=== PATIENT | female | born 1955 | race Caucasian/White ===

== ENCOUNTER 2017-04-18 12:31 | Inpatient (IN) | payer MEDICARE, MEDICAID ==
[~2017-04-18] VITALS: Ht 167.6 cm; Wt 72.0 kg
[2017-04-18] MEDS ORDERED: PERCOCET1 TA4 PO (13:43)
[2017-04-18] MEDS ORDERED: VALIUM5 MG PO (13:43)
[2017-04-18] MEDS ORDERED: ZOFRAN ODT4 MG PO (13:44)
[2017-04-18] MEDS ORDERED: TRAZODONE50 MG PO (13:45)
[2017-04-18] MEDS ORDERED: LEVOTHYROXIN50 MCG PO (13:45)
[2017-04-18 13:58] LABS: URINE BILIRUBIN - DIPSTICK NEGATIVE (NEGATIVE); URINE BLOOD DIPSTICK NEGATIVE (NEGATIVE); URINE CLARITY CLEAR; URINE COLOR YELLOW; URINE GLUCOSE - DIPSTICK NEGATIVE (NEGATIVE); URINE KETONE NEGATIVE (NEGATIVE); URINE LEUK ESTERASE NEGATIVE (NEGATIVE); URINE NITRITE - DIPSTICK NEGATIVE (Negative); URINE PH 5.5 (4.5-8.0); URINE PROTEIN - DIPSTICK NEGATIVE (NEG-TRACE); URINE SPECIFIC GRAVITY >=1.030; URINE UROBILINOGEN - DIPSTICK 0.2 E.U./dL (0.2)
[2017-04-18 13:59] LABS: HEMATOCRIT 39.4 % (37.0-47.0); HEMOGLOBIN 12.6 g/dl (12.0-16.0); IMMATURE GRANULOCYTES 0.2 % (0.0-1.0); MEAN CELL VOLUME 90.8 fL CALC (80.0-100.0); NEUT# 2.11 thou/uL (2.00-7.15); RED BLOOD COUNT 4.34 mill/uL (4.20-5.60); RED CELL DISTRI WIDTH 13.5 % (11.5-15.5)
[2017-04-18 14:14] LABS: PROTHROMBIN TIME 10.5 SECONDS (9.0-12.5)
[2017-04-18 14:15] LABS: ALKALINE PHOSPHATASE 83 u/l (38-126); ANION GAP 13 (6-22 (CALC)); BILIRUBIN, TOTAL 0.4 mg/dL (0.0-1.4); BUN 16 mg/dL (8-23); BUN/CREATININE RATIO 20 (12-20 (CALC)); CALCIUM 9.2 mg/dL (8.4-10.2); CARBON DIOXIDE 29 mmol/l (22-30); CHLORIDE 102 mmol/l (95-108); CREATININE 0.8 mg/dL (0.5-1.0); GFR > 60 ML/MIN (>=60 (CALC)); GFR FOR AFR.AMER. > 60 ML/MIN (>=60 (CALC)); GLUCOSE 109 mg/dL (82-115); POTASSIUM 3.9 mmol/l (3.5-5.1); SGOT/AST 19 u/l (9-36); SGPT/ALT 32 u/l (11-66); SODIUM 140 mmol/l (137-146); TOTAL PROTEIN 6.7 g/dL (6.3-8.2)
[2017-04-18 14:27] LABS: MYOGLOBIN 31 ng/mL (0 - 62)
[2017-04-18 18:50] VITALS: BP 137/76
[2017-04-18 22:00] LABS: BARBITURATES NEGATIVE (NEGATIVE); COCAINE NEGATIVE (NEGATIVE); METHADONE NEGATIVE (NEGATIVE); OXCYCODONE POSITIVE (NEGATIVE); TETRAHYDROCANNABIONOL NEGATIVE (NEGATIVE); TRICYLIC ANTIDEPRESSANTS NEGATIVE (NEGATIVE)
[2017-04-18 23:12] VITALS: BP 103/61
[2017-04-19 03:15] VITALS: BP 128/75
[2017-04-19 07:52] VITALS: BP 126/84
[2017-04-19] MEDS ORDERED: VENTOLIN HF1 IN (11:09)
[2017-04-19] MEDS ORDERED: TEMAZEPAM30 MG PO (11:10)
[2017-04-19 11:35] VITALS: BP 131/51
[2017-04-19 16:18] VITALS: BP 136/71
[2017-04-19 21:39] VITALS: BP 122/69
[2017-04-19 23:00] VITALS: BP 132/71
[2017-04-20 04:25] VITALS: BP 131/77
[2017-04-20 05:55] LABS: HEMATOCRIT 37.4 % (37.0-47.0); HEMOGLOBIN 12.2 g/dl (12.0-16.0); MEAN CORPUSCULAR HGB CONC 32.6 g/L CALC (32.0-36.0); NEUT# 1.67 thou/uL (2.00-7.15); RED BLOOD COUNT 4.2 mill/uL (4.20-5.60); RED CELL DISTRI WIDTH 13.4 % (11.5-15.5)
[2017-04-20 06:18] LABS: ANION GAP 12 (6-22 (CALC)); BUN 9 mg/dL (8-23); BUN/CREATININE RATIO 12 (12-20 (CALC)); CARBON DIOXIDE 27 mmol/l (22-30); CHLORIDE 107 mmol/l (95-108); CREATININE 0.7 mg/dL (0.5-1.0); GFR > 60 ML/MIN (>=60 (CALC)); GFR FOR AFR.AMER. > 60 ML/MIN (>=60 (CALC)); GLUCOSE 96 mg/dL (82-115); MAGNESIUM 1.9 mg/dL (1.6-2.3); POTASSIUM 3.3 mmol/l (3.5-5.1); SODIUM 142 mmol/l (137-146)
[2017-04-20 09:05] VITALS: BP 132/68
[2017-04-20 11:39] VITALS: BP 138/68
[2017-04-20 16:29] VITALS: BP 121/70
[2017-04-20 19:30] VITALS: BP 92/36
[2017-04-20 23:30] VITALS: BP 138/74
[2017-04-21 04:00] VITALS: BP 144/73
[2017-04-21 06:00] LABS: HEMATOCRIT 38.7 % (37.0-47.0); HEMOGLOBIN 12.5 g/dl (12.0-16.0); MEAN CELL VOLUME 88.4 fL CALC (80.0-100.0); MEAN CORPUSCULAR HGB 28.5 pG CALC (26.0-32.0); MEAN CORPUSCULAR HGB CONC 32.3 g/L CALC (32.0-36.0); NEUT# 1.86 thou/uL (2.00-7.15); RED BLOOD COUNT 4.38 mill/uL (4.20-5.60); RED CELL DISTRI WIDTH 13.2 % (11.5-15.5)
[2017-04-21 06:16] LABS: ANION GAP 11 (6-22 (CALC)); BUN 13 mg/dL (8-23); BUN/CREATININE RATIO 20 (12-20 (CALC)); CALCIUM 9.4 mg/dL (8.4-10.2); CARBON DIOXIDE 31 mmol/l (22-30); CHLORIDE 105 mmol/l (95-108); CREATININE 0.7 mg/dL (0.5-1.0); GFR > 60 ML/MIN (>=60 (CALC)); GFR FOR AFR.AMER. > 60 ML/MIN (>=60 (CALC)); GLUCOSE 82 mg/dL (82-115); POTASSIUM 3.9 mmol/l (3.5-5.1); SODIUM 143 mmol/l (137-146)
[2017-04-21 07:47] VITALS: BP 134/68
[2017-04-21 16:15] VITALS: BP 111/66
[2017-04-21 20:25] VITALS: BP 106/65
[2017-04-22 00:30] VITALS: BP 126/51
[2017-04-22 04:35] VITALS: BP 134/80
[2017-04-22 05:27] LABS: HEMATOCRIT 37.4 % (37.0-47.0); HEMOGLOBIN 12.4 g/dl (12.0-16.0); MEAN CELL VOLUME 88.4 fL CALC (80.0-100.0); MEAN CORPUSCULAR HGB 29.3 pG CALC (26.0-32.0); MEAN CORPUSCULAR HGB CONC 33.2 g/L CALC (32.0-36.0); NEUT# 2.04 thou/uL (2.00-7.15); RED BLOOD COUNT 4.23 mill/uL (4.20-5.60); RED CELL DISTRI WIDTH 13.2 % (11.5-15.5)
[2017-04-22 05:37] LABS: ANION GAP 13 (6-22 (CALC)); BUN 16 mg/dL (8-23); BUN/CREATININE RATIO 22 (12-20 (CALC)); CALCIUM 9.6 mg/dL (8.4-10.2); CARBON DIOXIDE 31 mmol/l (22-30); CHLORIDE 103 mmol/l (95-108); CREATININE 0.7 mg/dL (0.5-1.0); GFR > 60 ML/MIN (>=60 (CALC)); GFR FOR AFR.AMER. > 60 ML/MIN (>=60 (CALC)); GLUCOSE 84 mg/dL (82-115); MAGNESIUM 2.1 mg/dL (1.6-2.3); POTASSIUM 3.8 mmol/l (3.5-5.1); SODIUM 144 mmol/l (137-146)
[2017-04-22 08:43] VITALS: BP 112/69
[2017-04-22 12:21] VITALS: BP 130/66
[2017-04-22] MEDS ORDERED: LIPITOR40 M1 PO (13:48)
[2017-04-22] MEDS ORDERED: PROTONIX40 M2 PO (13:48)
[2017-04-22] MEDS ORDERED: ASPIRIN ADULT L81 M2 PO (13:48)
[2017-04-27] MEDS ORDERED: PERCOCET1 TA4 PO (13:22)
[2017-04-27] MEDS ORDERED: VALIUM5 MG PO (13:22)
[2017-04-27] MEDS ORDERED: TEMAZEPAM30 MG PO (13:22)
== END 2017-04-22 14:30 | DRG 65 ==
LOC: ED 12:31 → ED-I 14:57 → ED 16:26 → MS2 16:27
PROVIDERS: Emergency Medicine; Nurse Practitioner Family; ADMIT Internal Medicine; ATTEND Internal Medicine
DX: I63.9 Cerebral infarction, unspecified (principal); G81.91 Hemiplegia, unspecified affecting right dominant side; J44.9 Chronic obstructive pulmonary disease, unspecified; M96.1 Postlaminectomy syndrome, not elsewhere classified; K21.9 Gastro-esophageal reflux disease without esophagitis; F17.210 Nicotine dependence, cigarettes, uncomplicated; R47.1 Dysarthria and anarthria; R29.810 Facial weakness; R27.0 Ataxia, unspecified; H53.8 Other visual disturbances; R29.710 NIHSS score 10; G89.4 Chronic pain syndrome; Z96.89 Presence of other specified functional implants
CPT/HCPCS: G0378; S0164

== ENCOUNTER 2017-04-30 11:17 | Emergency (ER) | payer MEDICARE, MEDICAID ==
[~2017-04-30] VITALS: Ht 167.6 cm; Wt 70.0 kg
[~2017-04-30 11:17] MED LIST: ASPIRIN ADULT L81 M2 PO; LEVOTHYROXIN50 MCG PO; LIPITOR40 M1 PO; PERCOCET1 TA4 PO; PROTONIX40 M2 PO; TEMAZEPAM30 MG PO; TRAZODONE50 MG PO; VALIUM5 MG PO; VENTOLIN HF1 IN; ZOFRAN ODT4 MG PO
[2017-04-30 12:14] LABS: HEMATOCRIT 40.6 % (37.0-47.0); HEMOGLOBIN 13.2 g/dl (12.0-16.0); IMMATURE GRANULOCYTES 0.2 % (0.0-1.0); MEAN CELL VOLUME 89.8 fL CALC (80.0-100.0); MEAN CORPUSCULAR HGB 29.2 pG CALC (26.0-32.0); MEAN CORPUSCULAR HGB CONC 32.5 g/L CALC (32.0-36.0); NEUT# 2.46 thou/uL (2.00-7.15); RED BLOOD COUNT 4.52 mill/uL (4.20-5.60); RED CELL DISTRI WIDTH 13.1 % (11.5-15.5)
[2017-04-30 12:24] LABS: ALBUMIN 4.1 g/dL (3.2-5.0); ALKALINE PHOSPHATASE 78 u/l (38-126); ANION GAP 14 (6-22 (CALC)); BILIRUBIN, TOTAL 0.6 mg/dL (0.0-1.4); BUN 15 mg/dL (8-23); BUN/CREATININE RATIO 20 (12-20 (CALC)); CALCIUM 9.8 mg/dL (8.4-10.2); CARBON DIOXIDE 33 mmol/l (22-30); CHLORIDE 101 mmol/l (95-108); CREATININE 0.8 mg/dL (0.5-1.0); GFR > 60 ML/MIN (>=60 (CALC)); GFR FOR AFR.AMER. > 60 ML/MIN (>=60 (CALC)); GLUCOSE 91 mg/dL (82-115); POTASSIUM 4.1 mmol/l (3.5-5.1); SGOT/AST 20 u/l (9-36); SGPT/ALT 24 u/l (11-66); SODIUM 144 mmol/l (137-146); TOTAL PROTEIN 6.9 g/dL (6.3-8.2)
[2017-04-30 13:35] VITALS: BP 102/60
== END 2017-04-30 13:35 ==
LOC: ED 11:17
PROVIDERS: Emergency Medicine
DX: R11.0 Nausea (principal); R53.1 Weakness; F17.210 Nicotine dependence, cigarettes, uncomplicated; Z86.73 Personal history of transient ischemic attack (TIA), and cerebral infarction without residual deficits; J44.9 Chronic obstructive pulmonary disease, unspecified

== ENCOUNTER 2017-05-27 12:13 | Observation (INO) | payer MEDICARE, MEDICAID ==
[~2017-05-27] VITALS: Ht 167.6 cm; Wt 69.4 kg
--- NOTE | 2017-05-27 12:15 | NUR ---
PT ARRIVES, IMMEDIATELY TO ROOM 9 VIA WC.
[2017-05-27 12:46] LABS: HEMATOCRIT 41.9 % (37.0-47.0); HEMOGLOBIN 13.6 g/dl (12.0-16.0); IMMATURE GRANULOCYTES 0.2 % (0.0-1.0); MEAN CELL VOLUME 88.4 fL CALC (80.0-100.0); MEAN CORPUSCULAR HGB 28.7 pG CALC (26.0-32.0); MEAN CORPUSCULAR HGB CONC 32.5 g/L CALC (32.0-36.0); NEUT# 2.96 thou/uL (2.00-7.15); RED BLOOD COUNT 4.74 mill/uL (4.20-5.60); RED CELL DISTRI WIDTH 13.2 % (11.5-15.5)
[2017-05-27 13:00] LABS: ALBUMIN 4.5 g/dL (3.2-5.0); ALKALINE PHOSPHATASE 78 u/l (38-126); ANION GAP 13 (6-22 (CALC)); BILIRUBIN, TOTAL 0.8 mg/dL (0.0-1.4); BUN 9 mg/dL (8-23); BUN/CREATININE RATIO 12 (12-20 (CALC)); CALCIUM 9.9 mg/dL (8.4-10.2); CARBON DIOXIDE 28 mmol/l (22-30); CHLORIDE 105 mmol/l (95-108); CREATININE 0.8 mg/dL (0.5-1.0); GFR > 60 ML/MIN (>=60 (CALC)); GFR FOR AFR.AMER. > 60 ML/MIN (>=60 (CALC)); GLUCOSE 95 mg/dL (82-115); POTASSIUM 3.8 mmol/l (3.5-5.1); SGOT/AST 26 u/l (9-36); SGPT/ALT 26 u/l (11-66); SODIUM 142 mmol/l (137-146); TOTAL PROTEIN 7.3 g/dL (6.3-8.2)
[2017-05-27 13:12] LABS: MYOGLOBIN 29 ng/mL (0 - 62)
--- NOTE | 2017-05-27 13:58 | NUR ---
SBAR PRINTED TO FLOOR
[2017-05-27] MEDS ORDERED: BREO ELLIPTA1 INH IN (14:19)
--- NOTE | 2017-05-27 14:19 | NUR ---
PT DID CONFIRM NAMES OF MEDICATIONS FOR MEDICATION RECONCILIATION BUT COULD NOT CONFIRM DOSAGES
--- NOTE | 2017-05-27 14:33 | NUR ---
REPORT PROVIDED TO GRETA DAVIDSON
[2017-05-27 14:40] VITALS: BP 115/61
--- NOTE | 2017-05-27 14:40 | NUR ---
PT ARRIVED TO FLOOR VIA STRETCHER WITH ER NURSE MADIE REINA. PT ORIENTED TO ROOM AND CALL LIGHT SYSTEM. NO SIGNS OF DISTRESS. PT HAS NO COMPLAINTS AT THIS TIME. SAFETY PRECAUTIONS ARE IN PLACE. CALL LIGHT WITHIN REACH. HOURLY ROUNDS WILL BE MADE.
--- NOTE | 2017-05-27 14:53 | NUR ---
PT TO MEDSURG IN STABLE CONDITION VIA STRETCHER IN STABLE CONDITION.
[2017-05-27 16:45] VITALS: BP 115/62
[2017-05-27 19:15] VITALS: BP 98/60
--- NOTE | 2017-05-27 19:15 | NUR ---
PT RESTING IN BED WATCHING TV. PT IS ALERT AND ORIENTED X3. PERRLA. RESP ARE EVEN AND UNLABORED. NO DISTRESS NOTED. LUNGS ARE CLEAR. TELE IN PLACE. HR REGULAR. PULSES PALPABLE THROUGHOUT. NO EDEMA NOTED. BS ACTIVE. PT REPORTS A NORMAL BM 05/27. #20 RAC. NO REDNESS OR EDEMA NOTED. PT DENIES PAIN AT THIS TIME. WILL CONTINUE TO MONITOR.
[2017-05-28 00:15] VITALS: BP 119/63
--- NOTE | 2017-05-28 00:31 | NUR ---
PT RESTING IN BED WITH EYES CLOSED. AROUSED TO VERBAL STIMULI. RESP ARE EVEN AND UNLABORED. TELE IN PLACE. NO CHANGE IN STATUS WILL CONTINUE TO MONITOR.
--- NOTE | 2017-05-28 04:00 | NUR ---
PT RESTING IN BED WITH EYES CLOSED. AROUSED TO VERBAL STIMULI. RESP ARE EVEN AND UNLABORED. PT DENIES PAIN AT THIS TIME. TELE IN PLACE. NO CHANGE IN STATUS. WILL CONTINUE TO MONITOR.
[2017-05-28 04:44] VITALS: BP 109/55
[2017-05-28 05:55] LABS: HEMOGLOBIN 12.7 g/dl (12.0-16.0); IMMATURE GRANULOCYTES 0.2 % (0.0-1.0); MEAN CELL VOLUME 88.4 fL CALC (80.0-100.0); MEAN CORPUSCULAR HGB 28.8 pG CALC (26.0-32.0); MEAN CORPUSCULAR HGB CONC 32.6 g/L CALC (32.0-36.0); NEUT# 1.84 thou/uL (2.00-7.15); RED BLOOD COUNT 4.41 mill/uL (4.20-5.60)
[2017-05-28 06:15] LABS: ANION GAP 13 (6-22 (CALC)); BUN 12 mg/dL (8-23); BUN/CREATININE RATIO 17 (12-20 (CALC)); CALCIUM 9.6 mg/dL (8.4-10.2); CARBON DIOXIDE 26 mmol/l (22-30); CHLORIDE 108 mmol/l (95-108); CREATININE 0.7 mg/dL (0.5-1.0); GFR > 60 ML/MIN (>=60 (CALC)); GFR FOR AFR.AMER. > 60 ML/MIN (>=60 (CALC)); GLUCOSE 84 mg/dL (82-115); POTASSIUM 3.8 mmol/l (3.5-5.1); SODIUM 143 mmol/l (137-146)
--- NOTE | 2017-05-28 07:00 | NUR ---
REPORT RECIEVED FROM MADIE SHEARER. PT AWAKE ON ENTRY. RESTING IN SUPINE POSITION. PT HAS NO COMPLAINTS OF PAIN AT THIS TIME. SAFETY PRECAUTIONS REINFORCED. CALL LIGHT WITHIN REACH. WILL CONTINUE TO MAKE HOURLY ROUNDS.
[2017-05-28 08:08] VITALS: BP 111/66
[2017-05-28] MEDS ORDERED: ZOFRAN ODT4 MG PO (11:34)
[2017-05-28] MEDS ORDERED: PROTONIX40 M2 PO (11:34)
--- NOTE | 2017-05-28 12:00 | NUR ---
PT IS RESTING IN BED. NO SIGNS OF DISTRESS. NO COMPLAINTS OF PAIN FROM PT AT THIS TIME. TELE IN PLACE. SAFTEY PRECAUTIONS IN PLACE. CALL LIGHT WITH IN REACH. WILL CONTINUE TO MONITOR HOURLY.
[2017-05-28 13:31] LABS: CHOLESTEROL HDL RATIO 3.3 (<4.4 (CALC))
[2017-05-28 13:40] VITALS: BP 93/64
--- NOTE | 2017-05-28 14:50 | NUR ---
Discharge instructions given. Patient verbalizes understanding of same. Discharged in stable condition via Wheelchair to Home with staff. All belongings sent with pt.
== END 2017-05-28 15:00 ==
LOC: ED 12:13 → ED-I 13:46 → ED 13:55 → MS2 13:56
PROVIDERS: Emergency Medicine; Nurse Practitioner Family; ADMIT Internal Medicine; ATTEND Internal Medicine
DX: R07.89 Other chest pain (principal); F17.210 Nicotine dependence, cigarettes, uncomplicated; I69.951 Hemiplegia and hemiparesis following unspecified cerebrovascular disease affecting right dominant side; J43.9 Emphysema, unspecified; K21.9 Gastro-esophageal reflux disease without esophagitis; G89.4 Chronic pain syndrome; R11.0 Nausea; R25.2 Cramp and spasm; R51 Headache; R47.81 Slurred speech; R25.1 Tremor, unspecified

== ENCOUNTER 2018-05-06 04:42 | Observation (INO) | payer MEDICARE, MEDICAID ==
[~2018-05-06] VITALS: Ht 167.6 cm; Wt 61.0 kg
[~2018-05-06 04:42] MED LIST changes: +BREO ELLIPTA1 INH IN
--- NOTE | 2018-05-06 04:52 | NUR ---
AMBULATED TO ROOM
--- NOTE | 2018-05-06 04:56 | NUR ---
A/O F WITH V/D X 3 DAYS DENIES ABD PAIN.ACTIVE SOUNDS,OS IS MOIST AND PINK.DENIES DYSURIAS,HAS NOT BEEN ON ABX IN A LONG TIME.NEIGHBORS HAVE SIMILAR S/S
[2018-05-06] MEDS ORDERED: ARNUITY EL200 MCG/AC PO (05:25)
[2018-05-06 05:31] LABS: HEMATOCRIT 43.8 % (37.0-47.0); HEMOGLOBIN 14.4 g/dl (12.0-16.0); IMMATURE GRANULOCYTES 0.2 % (0.0-5.0); MEAN CELL VOLUME 87.8 fL CALC (80.0-100.0); MEAN CORPUSCULAR HGB 28.9 pG CALC (26.0-32.0); MEAN CORPUSCULAR HGB CONC 32.9 g/L CALC (32.0-36.0); NEUT# 3.3 thou/uL (2.00-7.15); RED BLOOD COUNT 4.99 mill/uL (4.20-5.60); RED CELL DISTRI WIDTH 14.3 % (11.5-15.5)
[2018-05-06 05:50] LABS: ALBUMIN 4.3 g/dL (3.2-5.0); ALKALINE PHOSPHATASE 87 u/l (38-126); AMYLASE 46 u/l (30-110); ANION GAP 11 (6-22 (CALC)); BILIRUBIN, TOTAL 0.6 mg/dL (0.0-1.4); BUN 7 mg/dL (8-23); BUN/CREATININE RATIO 9 (12-20 (CALC)); CARBON DIOXIDE 32 mmol/l (22-30); CHLORIDE 106 mmol/l (95-108); CREATININE 0.8 mg/dL (0.5-1.0); GFR > 60 ML/MIN (>=60 (CALC)); GFR FOR AFR.AMER. > 60 ML/MIN (>=60 (CALC)); LIPASE 80 u/l (23-300); POTASSIUM 3.5 mmol/l (3.5-5.1); SGOT/AST 22 u/l (9-36); SODIUM 145 mmol/l (137-146); TOTAL PROTEIN 6.9 g/dL (6.3-8.2)
--- NOTE | 2018-05-06 06:50 | NUR ---
RECEIVED REPORT FROM NOELLE ERAZO RN. PT IN CT
[2018-05-06 07:14] LABS: INFLUENZA A NONE DETECTED (NONE DETECT); INFLUENZA B NONE DETECTED (NONE DETECT)
--- NOTE | 2018-05-06 07:15 | NUR ---
PT RETURNED FROM CT AND MEDICATED FOR NAUSEA. PT DENIES PAIN.
[2018-05-06] MEDS ORDERED: XANAX1 MG PO (07:43)
--- NOTE | 2018-05-06 07:43 | NUR ---
PT REQUESTING MORNING DOSE OF XANAX SHE "USUALLY TAKES IT AT 6 AM". PT STATES "I TOLD MY BROTHER I AM COMING HOME". PT STATES NAUSEA HAS RESOLVED.
--- NOTE | 2018-05-06 08:04 | NUR ---
PT UP TO BSC, APPROX 30CC LIQUID GREEN STOOL SENT TO LAB. OBTAINED UA. PT STATES SHE HAS CRAMPING AND HOT FLASHES WHEN SHE NEEDS TO DEFECATE. AWARE.
[2018-05-06 08:10] LABS: URINE BILIRUBIN - DIPSTICK NEGATIVE (NEGATIVE); URINE BLOOD DIPSTICK NEGATIVE (NEGATIVE); URINE COLOR YELLOW; URINE GLUCOSE - DIPSTICK NEGATIVE (NEGATIVE); URINE KETONE NEGATIVE (NEGATIVE); URINE LEUK ESTERASE NEGATIVE (NEGATIVE); URINE NITRITE - DIPSTICK NEGATIVE (Negative); URINE PH 7.5 (4.5-8.0); URINE PROTEIN - DIPSTICK NEGATIVE (NEG-TRACE); URINE UROBILINOGEN - DIPSTICK 0.2 E.U./dL (0.2)
[2018-05-06 08:11] LABS: URINE CLARITY CLEAR
[2018-05-06 08:49] LABS: C. DIFFICILE TOXIN A&B NEGATIVE (NEGATIVE)
--- NOTE | 2018-05-06 08:59 | NUR ---
MD AT BEDSIDE TO DISCUSS CLINICAL FINDINGS AND POSSIBLE ADMISSION, PT AGREEABLE.
--- NOTE | 2018-05-06 09:05 | NUR ---
PT UP TO BSC WITH APPROX 30 CC GREEN LIQUID STOOL. DENIES N/V AT THIS TIME
--- NOTE | 2018-05-06 09:50 | NUR ---
INITIATED IV FLUIDS AND PO ABT ORDERED. PT UPDATED ON WAIT TIME. VSS
--- NOTE | 2018-05-06 10:08 | NUR ---
MEDICATED FOR NAUSEA, NO EMESIS. TOLERATING IVF WELL.
--- NOTE | 2018-05-06 10:38 | NUR ---
CALLED REPORT TO MADIE ELLIS MS2
--- NOTE | 2018-05-06 10:40 | NUR ---
TRANSPORTED TO [facility] VIA IN NO ACUTE DISTRESS
[2018-05-06 10:55] VITALS: BP 143/78
--- NOTE | 2018-05-06 10:55 | NUR ---
PT ARRIVED TO MS2 VIA WHEELCHAIR ACCOMPANIED BY ER NURSE. PT ALERT AND ORIENTED X3, ORIENTED PT TO ROOM AND CALL SYSTEM, DISCUSSED POC AND DIET. PT IN AGREEMENT. PT REQUESTS PERCOCET FOR PAIN, WILL NOTIFY MEDICAL TRANSCRIPTION EDITOR. ADMISSION ASSESSMENT COMPLETED. CALL LIGHT IN REACH,CONTINUE TO MONITOR.
--- NOTE | 2018-05-06 12:02 | NUR ---
LASHAUN AND AT BEDSIDE.
[2018-05-06] MEDS ORDERED: PERCOCET1 TA4 PO (12:04)
[2018-05-06 15:35] VITALS: BP 119/69
--- NOTE | 2018-05-06 15:43 | NUR ---
PT SWABBED FOR MRSA-R NARE, SPECIMEN SENT TO LAB. PT PLACED ON CONTACT PRECAUTIONS FOR HX OF MRSA.
[2018-05-06 20:00] VITALS: BP 122/67
--- NOTE | 2018-05-06 20:14 | NUR ---
ASSESSMENT IS COMPLETED: PT HAS BEEN UP TO THE BATHROOM, NO DISTRESS NOTED. IV SITE IS FREE FROM REDNESS OR EDEMA. HR IS REG, PULSES ARE STRONG X4, ABD IS SOFT WITH ACTIVE BS BREATH SOUNDS ARE CLEAR AND SOME WHEEZING NOTED. C/O NAUSEA TOO SOON FOR MEDICATIONS., CONTINUE TO OSBERVE AND MONITOR.
--- NOTE | 2018-05-07 00:20 | NUR ---
PT IS RESTING WITH EYES CLOSED. NO DISTRESS NOTED, IV SITE IS FREE FROM REDNESS OR EDEMA. CONTINUE TO OSBERVE AND MONITOR.
--- NOTE | 2018-05-07 04:20 | NUR ---
PT HAS BEEN RESTING OFF AND ON. NO DISTRESS NOTED. COMMENTED "WHEN I MOVE THEN I GET NAUSEOUS". CONTIUE TO OSBERVE AND MONITOR IV SITE IS FREE FROM REDNESS OR EDEMA.
[2018-05-07 05:19] LABS: MEAN CELL VOLUME 89.5 fL CALC (80.0-100.0); MEAN CORPUSCULAR HGB 28.8 pG CALC (26.0-32.0); MEAN CORPUSCULAR HGB CONC 32.2 g/L CALC (32.0-36.0); RED BLOOD COUNT 4.1 mill/uL (4.20-5.60); RED CELL DISTRI WIDTH 14.6 % (11.5-15.5)
[2018-05-07 05:27] LABS: HEMATOCRIT 36.7 % (37.0-47.0); HEMOGLOBIN 11.8 g/dl (12.0-16.0)
[2018-05-07 05:28] VITALS: BP 114/66
[2018-05-07 05:47] LABS: ANION GAP 9 (6-22 (CALC)); BUN 8 mg/dL (8-23); BUN/CREATININE RATIO 12 (12-20 (CALC)); CARBON DIOXIDE 27 mmol/l (22-30); CHLORIDE 111 mmol/l (95-108); CREATININE 0.7 mg/dL (0.5-1.0); GFR > 60 ML/MIN (>=60 (CALC)); GFR FOR AFR.AMER. > 60 ML/MIN (>=60 (CALC)); POTASSIUM 3.3 mmol/l (3.5-5.1); SODIUM 144 mmol/l (137-146)
--- NOTE | 2018-05-07 07:16 | NUR ---
PT RESTING IN BED, NO SIGNS OF DISTRESS NOTED, RESP EVEN AND UNLABORED. PT STATES SHE IS TRYING NOT TO MOVE BECAUSE WHEN SHE DOES SHE GETS SICK. ALERT AND ORIENETED X3, NEW IVF BAG INITIATED. DISCUSSED POC, PT IN AGREEMENT. ASSESSMENT COMPLETED. VOICES NO NEEDS OR COMPLAINTS AT THIS TIME. CALL LIGHT IN REACH,CONTINUE TO MONITOR.
[2018-05-07 08:48] VITALS: BP 110/60
--- NOTE | 2018-05-07 11:01 | NUR ---
ENTERED ROOM PT LYING ON HER SIDE, C/O PAIN 05/11, MEDICATED PER SEP. ORDERS FOR K-RIDER, PT IN AGREEMENT. INITATED INFUSION, INSTRUCTED TO CALL IF ANY ISSUES. CALL LIGHT IN REACH,CONTINUE TO MONITOR, BSC AT BEDSIDE.
--- NOTE | 2018-05-07 14:05 | NUR ---
PT C/O LEAKING TO IV SITE, FLUIDS HELD, AND NEW IV STARTED TO RFA, RESTARTED FLUIDS, SLOWED DOWN KRIDER, DUE TO BURNING, PT ALSO C/O NAUSEA. CALL LIGHT IN REACH,CONTINUE TO MONTIOR.
--- NOTE | 2018-05-07 14:25 | NUR ---
ENTERED ROOM TO GIVE PHENERGAN FOR NAUSEA, PHEREGAN GIVEN IM DUE TO POTASSIUM INFUSION. CALL LIGHT IN REACH,CONTINUE TO MONITOR.
[2018-05-07 16:00] VITALS: BP 139/69
--- NOTE | 2018-05-07 16:17 | NUR ---
PT RESTING IN BED, IV POTASSIUM INFUSION COMPLETED, PT VOICES NO NEEDS OR COMPLAINTS AT THIS TIME. CALL LIGHT IN REACH,CONTINUE TO MONITOR.
--- NOTE | 2018-05-07 19:15 | NUR ---
PT SITTING UP IN BED WATCHING TV. PT IS ALERT AND ORIENTED X3. SHIFT ASSESSMENT COMPLETED AT THIS TIME. IV PATENT X1. PLAN OF CARE REVIEWED WTIH PT. PT VERBALIZED UNDERSTANDING. CALL LIGHT IN REACH. WILL CONTINUE TO MONITOR.
[2018-05-07 19:19] VITALS: BP 120/60
--- NOTE | 2018-05-07 23:54 | NUR ---
PT RESTING IN BED WITH EYES CLOSED. RESP ARE EVEN AND UNLABORED. NO DISTRESS NOTED. CALL LIGHT IN REACH. WILL CONTINUE TO MONITOR.
--- NOTE | 2018-05-08 03:46 | NUR ---
PT RESTING IN BED WITH EYES CLOSED. RESP ARE EVEN AND UNLABORED. NO DISTRESS NOTED. CALL LIGHT IN REACH. WILL CONTINUE TO MONITOR
[2018-05-08 04:05] VITALS: BP 121/62
[2018-05-08 05:24] LABS: HEMATOCRIT 36.8 % (37.0-47.0); HEMOGLOBIN 11.9 g/dl (12.0-16.0); MEAN CELL VOLUME 88.9 fL CALC (80.0-100.0); MEAN CORPUSCULAR HGB 28.7 pG CALC (26.0-32.0); MEAN CORPUSCULAR HGB CONC 32.3 g/L CALC (32.0-36.0); RED BLOOD COUNT 4.14 mill/uL (4.20-5.60); RED CELL DISTRI WIDTH 14.1 % (11.5-15.5)
[2018-05-08 05:43] LABS: ANION GAP 7 (6-22 (CALC)); BUN 8 mg/dL (8-23); BUN/CREATININE RATIO 14 (12-20 (CALC)); CARBON DIOXIDE 27 mmol/l (22-30); CHLORIDE 111 mmol/l (95-108); CREATININE 0.6 mg/dL (0.5-1.0); GFR > 60 ML/MIN (>=60 (CALC)); GFR FOR AFR.AMER. > 60 ML/MIN (>=60 (CALC)); MAGNESIUM 1.9 mg/dL (1.6-2.3); POTASSIUM 3.4 mmol/l (3.5-5.1); SODIUM 142 mmol/l (137-146)
--- NOTE | 2018-05-08 08:00 | NUR ---
PT RESTING IN BED, C/O PAIN, PT MEDICATED PER MAR. DISCUSSED POC, PT REMOVED FROM CONTACT PRECAUTIONS DUE TO NEG MRSA SWAB. PT ALERT AND ORIENTED X3, NO EDEMA. RESP EVEN AND UNLABORED. ASSESSMENT COMPLETED AT THIS TIME. VSS, CALL LIGHT IN REACH,CONTINUE TO MONITOR.
[2018-05-08 08:01] VITALS: BP 128/68
--- NOTE | 2018-05-08 13:18 | NUR ---
PT MEDICATED FOR PAIN, NO SIGNS OF DISTRESS NOTED, RESP EVEN AND UNLABORED. CALL LIGHT IN REACH,CONTINUE TO MONITOR.
--- NOTE | 2018-05-08 16:07 | NUR ---
PT C/O NAUSEA, MEDICATED WITH PHENERGAN. CALL LIGHT IN REACH,CONTINUE TO MONITOR.
[2018-05-08 16:20] VITALS: BP 125/62
--- NOTE | 2018-05-08 19:00 | NUR ---
RECEIVED CHANGE OF SHIFT REPORT FROM GRETA ELLIS. PT ALERT AND ORIENTED AND LYING IN BED. NO VOICED COMPLAINTS AT THIS TIME. NO APPARENT ACUTE DISTRESS NOTED. WILL CONTINUE TO MONITOR.
[2018-05-08 19:14] VITALS: BP 126/67
--- NOTE | 2018-05-09 | NUR ---
PT RESTING QUIETLY WITH EYES CLOSED AND APPEARS TO BE ASLEEP. NO APPARENT ACUTE DISTRESS NOTED. WILL CONTINUE TO MONITOR.
--- NOTE | 2018-05-09 04:00 | NUR ---
PT C/O OF CHRONIC PAIN. NO APPARENT ACUTE CHANGES NOTED IN PT'S CONDITION.
[2018-05-09 04:28] VITALS: BP 127/73
[2018-05-09 05:46] LABS: ANION GAP 10 (6-22 (CALC)); BUN 7 mg/dL (8-23); BUN/CREATININE RATIO 14 (12-20 (CALC)); CARBON DIOXIDE 26 mmol/l (22-30); CHLORIDE 110 mmol/l (95-108); CREATININE 0.5 mg/dL (0.5-1.0); GFR > 60 ML/MIN (>=60 (CALC)); GFR FOR AFR.AMER. > 60 ML/MIN (>=60 (CALC)); POTASSIUM 3.6 mmol/l (3.5-5.1); SODIUM 143 mmol/l (137-146)
[2018-05-09 07:35] VITALS: BP 126/66
--- NOTE | 2018-05-09 07:35 | NUR ---
ASSESSMENT IS COMPLTED: IV SITE IS FREE FROM REDNESS OR EDEMA. HR IS REG, PULSES ARE STRONG X4, ABD IS SOFT WITH ACTIVE BS. BREATH SOUNDS ARE CLEAR, BILATERALLY/ TELE MONITOR IN PLACE.
[2018-05-09] MEDS ORDERED: ZITHROMAX500 MG PO (12:00)
[2018-05-09] MEDS ORDERED: PERCOCET1 TA4 PO (12:00)
[2018-05-09] MEDS ORDERED: ZOFRAN ODT4 MG PO (12:00)
--- NOTE | 2018-05-09 12:00 | NUR ---
PT IS RELAXING IN BED AND WAITING FOR DISCHARGE. PT C/O NAUSEA. GAVE MEDICATION. IV SITE IS FREE FROM REDNESS OR EDEMA.
--- NOTE | 2018-05-09 14:20 | NUR ---
IV SITE DISCONTINUED CATHETER INTACT. DISCHARGE INSTRUCTIONS GIVEN AND PT VERBALIZED UNDERSTANDING. CONINUE TO OBSERVE AND MONITOR, Discharge instructions given. Patient verbalizes understanding of same. Discharged in stable condition via Wheelchair to Home with family. All belongings sent with pt.
== END 2018-05-09 14:30 | disposition home or self-care (01) ==
LOC: ED 04:42 → ED-I 08:50 → ED 09:10 → MS2 09:11
PROVIDERS: Emergency Medicine; Nurse Practitioner Family; ADMIT Internal Medicine; ATTEND Internal Medicine
DX: A04.5 Campylobacter enteritis (principal); E87.6 Hypokalemia; E03.9 Hypothyroidism, unspecified; J43.9 Emphysema, unspecified; K21.9 Gastro-esophageal reflux disease without esophagitis; G89.4 Chronic pain syndrome; I69.951 Hemiplegia and hemiparesis following unspecified cerebrovascular disease affecting right dominant side; F17.210 Nicotine dependence, cigarettes, uncomplicated
CPT/HCPCS: Q9967

== ENCOUNTER 2018-09-12 18:53 | Inpatient (IN) | payer MEDICARE, MEDICAID ==
[~2018-09-12] VITALS: Ht 162.6 cm; Wt 63.5 kg
[~2018-09-12 18:53] MED LIST changes: +ARNUITY EL200 MCG/AC PO; +XANAX1 MG PO; +ZITHROMAX500 MG PO
--- NOTE | 2018-09-12 19:20 | NUR ---
PT TO ROOM PER W/C
--- NOTE | 2018-09-12 19:30 | NUR ---
PT STATES FELT LIGHTHEADED AND FELL IN LIVING ROOM, GOING FACE FIRST. PT HAS SMALL ABRASION ACROSS THE TOP OF NOSE, BRUISING NOTED ON RIGHT FOREHEAD AND BRUISE TO RIGHT SHOULDER. AT THIS TIME PT STATES FEELS MUCH BETTER BUT TIRED
[2018-09-12 20:04] LABS: HEMATOCRIT 41.1 % (37.0-47.0); HEMOGLOBIN 13.5 g/dl (12.0-16.0); IMMATURE GRANULOCYTES 0.3 % (0.0-5.0); MEAN CELL VOLUME 87.4 fL CALC (80.0-100.0); MEAN CORPUSCULAR HGB 28.7 pG CALC (26.0-32.0); MEAN CORPUSCULAR HGB CONC 32.8 g/L CALC (32.0-36.0); NEUT# 2.08 thou/uL (2.00-7.15); RED BLOOD COUNT 4.7 mill/uL (4.20-5.60); RED CELL DISTRI WIDTH 13.7 % (11.5-15.5)
[2018-09-12 20:20] LABS: ALBUMIN 4.4 g/dL (3.2-5.0); ALKALINE PHOSPHATASE 94 u/l (38-126); ANION GAP 16 (6-22 (CALC)); BILIRUBIN, TOTAL 0.5 mg/dL (0.0-1.4); BUN 14 mg/dL (8-23); BUN/CREATININE RATIO 17 (12-20 (CALC)); CARBON DIOXIDE 26 mmol/l (22-30); CHLORIDE 100 mmol/l (95-108); CREATININE 0.8 mg/dL (0.5-1.0); GFR > 60 ML/MIN (>=60 (CALC)); GFR FOR AFR.AMER. > 60 ML/MIN (>=60 (CALC)); POTASSIUM 4.2 mmol/l (3.5-5.1); SGOT/AST 26 u/l (9-36); SODIUM 138 mmol/l (137-146); TOTAL PROTEIN 7.1 g/dL (6.3-8.2)
[2018-09-12 20:32] LABS: MYOGLOBIN 45 ng/mL (0 - 62)
--- NOTE | 2018-09-12 20:35 | NUR ---
PT ADVISED OF POSSIBILITY OF ADMISSION, PT VOICES UNDERSTANDING.
--- NOTE | 2018-09-12 20:52 | NUR ---
PT RESTING QUIETLY ON STRETCHER, WATCHING TV. STATES STILL FEELS A LITTLE DIZZY, NOTIFIED.
--- NOTE | 2018-09-12 20:54 | NUR ---
FLUIDS INFUSING, PT REMAINS ALERT/ORIENTED X3,
[2018-09-12 21:17] LABS: TSH, 3RD GENERATION 1.17 uIU/mL (0.47 - 4.68)
--- NOTE | 2018-09-12 21:53 | NUR ---
REPORT GIVEN TO ARLENE, WILL TAKE PT UP WHEN SHE IS FREE
--- NOTE | 2018-09-12 22:08 | NUR ---
TO FLOOR VIA STRETCHER/O2
[2018-09-12 22:10] VITALS: BP 103/65
[2018-09-12 22:17] LABS: COCAINE NEGATIVE (NEGATIVE); METHADONE NEGATIVE (NEGATIVE); TETRAHYDROCANNABIONOL NEGATIVE (NEGATIVE)
[2018-09-12 22:18] LABS: BARBITURATES NEGATIVE (NEGATIVE); TRICYLIC ANTIDEPRESSANTS NEGATIVE (NEGATIVE)
[2018-09-12 22:19] LABS: OXCYCODONE POSITIVE (NEGATIVE)
[2018-09-13] VITALS (11 sets, daily range): BP systolic 74–122; BP diastolic 39–60
--- NOTE | 2018-09-13 07:50 | NUR ---
PT RESTING IN SEMI FOWLERS POSITION EATING BREAKFAST;INTRODUCED SELF TO PT AND POC DISCUSSED;PT ALERT AND ORIENTED X3;VS OBTAINED AND ASSESSMENT COMPLETED;CURRENT BP 74/40 HR 87, PT IS ASYMPTOMATIC AT THIS TIME REQUESTING "XANAX AND PAIN PILL";PT NOTIFIED THAT SHE WILL RECEIVE HER XANAX BUT NOT HER PAIN MEDICATION UNTIL BLOOD PRESSURE INCREASES;IV FLUIDS STARTED AT 100ML/HR PER ORDER AT THIS TIME TO #20G IN RAC;RESPIRATIONS SHALLOW ON 02 @ 2L VIA NC;ABDOMEN SOFT ON PALPATION AND ACTIVE IN ALL 4 QUADRANTS;WEAK PEDAL PULSES;ABRASION NOTED TO AURE AND BRUSING TO FACE FROM FALL CLIENT SUPPORT PROFESSIONAL;TELE MONITORING IN PLACE;PT REPORTS HEADACHE RATING 7/10 ON THE PAIN SCALE AND IS MEDICATED WITH PRN TYLENOL 650MG PO;CONTACT PRECAUTIONS IN PLACE FOR HX OF MRSA;PT DENIES ANY ADDITIONAL NEEDS AND IS ENCOURAGED TO CALL FOR ASSISTANCE IF NEEDED;CALL LIGHT IN REACH;WILL CONTINUE TO MONITOR
--- NOTE | 2018-09-13 07:55 | NUR ---
PT CURRENT BP 74/40, PT ASYMPTOMAIC REQUESTING "PAIN PILL";IV FLUIDS STARTED AT THIS TIME PER ORDER;WILL RE-ASSESS PT BP IN HALF HOUR.
--- NOTE | 2018-09-13 08:00 | NUR ---
REPORT RECEIVED FROM GRETA MCCORMICK.
--- NOTE | 2018-09-13 09:13 | NUR ---
VOICEMAIL LEFT FOR AT THIS TIME REGARDING PT LOW BP OF 74/40 HR 87
--- NOTE | 2018-09-13 09:22 | NUR ---
NOTIFIED OF LOW BLOOD PRESSURE, STATES "I NEED TO LOOK STUFF UP FIRST, I DONT KNOW HER";NO NEW ORDERS RECEIVED.
--- NOTE | 2018-09-13 10:03 | NUR ---
BP RE-CHECK 94/47, PT REMAINS ASYMPTOMATIC;REQUESTING PAIN MEDICATION AGAIN, RE-EDUCATED ON PAIN MEDICATION EFFECTS ON BLOOD PRESSURE AND PT VERBALIZES UNDERSTANDING;WILL CONTINUE TO MONITOR
--- NOTE | 2018-09-13 11:51 | NUR ---
AT BEDSIDE DISCUSSING POC;PT OOB RESTING IN RECLINER;RESPIRATIONS EVEN AND UNLABORED ON 02 @ 2L VIA NC;IV FLUIDS CONTINUE TO INFUSE WITH EASE TO RAC;TELE MONITORING IN PLACE;PT DENIES ANY CURRENT NEEDS AND IS ENCOURAGED TO CALL FOR ASSISTANCE IF NEEDED;CALL LIGHT IN REACH;WILL CONTINUE TO MONITOR
--- NOTE | 2018-09-13 16:15 | NUR ---
PT RESTING IN SUPINE POSITION;RESPIRATIONS EVEN AND UNLABORED ON RA;CURRENT BP 85/47 HR 87, MD AWARE;IV FLUIDS CONTINUE TO INFUSE WITH EASE TO RAC;TELE MONITORING IN PLACE;PT DENIES ANY ADDITIONAL NEEDS AT THIS TIME AND IS ENCOURAGED TO CALL FOR ASSISTANCE IF NEEDED;CALL LIGHT IN REACH;WILL CONTINUE TO MONITOR
--- NOTE | 2018-09-13 21:07 | NUR ---
PT REMOVED IV SITE BECAUSE IT "WAS HURTING." SITE APPEARS HEALTHY, IV ANTIBIOITICS WERE RUNNING AT THE TIME. PHYSICIAN NOTIFIED OF BP AND BOLUS OF NS WAS ORDERED. NEW IV SITE IS BEING ACCESSED BY ANOTHER FLOOR NURSE AND PT WILL BE BOLUSED FOR LOW BP.
--- NOTE | 2018-09-13 23:36 | NUR ---
PT MEDICATED W/TYLENOL ORDERS PROVIDE FOR HEADACHE. POC DISCUSSED W/PT AT THIS TIME. PT ASSESSED, LUNG SOUNDS ARE CLEAR, NO S/O DISTRESS AT THIS TIME. CALL LIGHT IN HAND, EXTRA BLANKET PROVIDED.
[2018-09-14] VITALS (7 sets, daily range): BP systolic 93–116; BP diastolic 51–70
--- NOTE | 2018-09-14 03:36 | NUR ---
PT IS SLEEPING SOUNDLY, IV FLUIDS REPLENISHED AT THIS TIME. NO S/O DISTRESS. CALL LIGHT AT SIDE.
[2018-09-14 06:00] LABS: HEMATOCRIT 36.9 % (37.0-47.0); HEMOGLOBIN 11.9 g/dl (12.0-16.0); IMMATURE GRANULOCYTES 0.3 % (0.0-5.0); MEAN CELL VOLUME 88.1 fL CALC (80.0-100.0); MEAN CORPUSCULAR HGB 28.4 pG CALC (26.0-32.0); MEAN CORPUSCULAR HGB CONC 32.2 g/L CALC (32.0-36.0); NEUT# 5.96 thou/uL (2.00-7.15); RED BLOOD COUNT 4.19 mill/uL (4.20-5.60)
[2018-09-14 06:01] LABS: ALKALINE PHOSPHATASE 82 u/l (38-126); AMYLASE < 30 u/l (30-110); ANION GAP 11 (6-22 (CALC)); BILIRUBIN, TOTAL 0.1 mg/dL (0.0-1.4); BUN 14 mg/dL (8-23); BUN/CREATININE RATIO 24 (12-20 (CALC)); CARBON DIOXIDE 26 mmol/l (22-30); CHLORIDE 110 mmol/l (95-108); CREATININE 0.6 mg/dL (0.5-1.0); GFR > 60 ML/MIN (>=60 (CALC)); GFR FOR AFR.AMER. > 60 ML/MIN (>=60 (CALC)); LIPASE 66 u/l (23-300); POTASSIUM 3.9 mmol/l (3.5-5.1); SGOT/AST 18 u/l (9-36); SODIUM 142 mmol/l (137-146)
[2018-09-14 06:05] LABS: ALBUMIN 3.4 g/dL (3.2-5.0); TOTAL PROTEIN 5.5 g/dL (6.3-8.2)
--- NOTE | 2018-09-14 07:05 | NUR ---
REPORT RECEIVED FROM MADIE MANN;PT RESTING IN SEMI FOWLERS POSITION;INTRODUCED SELF TO PT AND POC DISCUSSED;RESPIRATIONS EVEN AND UNLABORED ON RA;PT DENIES ANY CURRENT PAIN OR NEEDS;IV FLUIDS INFUSING WELL TO RAC;TELE MONITORING IN PLACE;CONTACT PRECAUTIONS NOTED;PT ENCOURAGED TO CALL FOR ASSISTANCE IF NEEDED;CALL LIGHT IN REACH;WILL CONTINUE TO MONITOR
--- NOTE | 2018-09-14 08:30 | NUR ---
PT RESTING IN SEMI FOWLERS POSITION EATING BREAKFAST;VS OBTAINED AND ASSESSMENT COMPLETED;BP 111/62 HR 82;PT REPORTS HEADACHE PAIN BUT DENIES THE NEED FOR PAIN MEDICATION AT THIS TIME,PAIN SCALE AND REPORTING EDUCATED;RESPIRATIONS EVEN AND UNLABORED,SHALLOW ON 02 @ 2L HUM,CLEAR LUNG SOUNDS;ABDOMEN SOFT ON PALPATION AND ACTIVE IN ALL 4 QUADRANTS;STRONG PEDAL PULSES;#22G TO LEFT FOREARM INFUSING NS @ 100ML/HR,SITE APPEARS HEALTHY;ABRASION NOTED TO AURE AND BRUSING NOTED THROUGHOUT R/T FALL STRATEGIC PROCUREMENT MANAGER TO HOSPITAL;PT REQUESTS PRN XANAX 1MG PO WHICH IS ADMINISTERED AT THIS TIME;TELE MONITORING IN PLACE;CONTACT PRECAUTIONS NOTED;PT ENCOURAGED TO CALL FOR ASSISTANCE IF NEEDED;CALL LIGHT IN REACH;WILL CONTINUE TO MONITOR
--- NOTE | 2018-09-14 10:09 | NUR ---
PT REPORTS PAIN TO LOWER BACK RATING 8/10 ON THE PAIN SCALE AND REQUEST PAIN MEDICATION;PT MEDICATED WITH PERCOCET 10/325MG PO AT THIS TIME;WILL MONITOR FOR EFFECTIVENESS
--- NOTE | 2018-09-14 12:10 | NUR ---
PT RESTING IN HIGH FOWLERS POSITION EATING LUNCH;RESPIRATIONS EVEN AND UNLABORED ON 02 @ 2L VIA NC;PT REPORTS PAIN HAS DECREASED FROM A 8 TO A 5/10 ON THE PAIN SCALE;IV FLUIDS CONTINUE TO INFUSE TO LEFT FOREARM WITH EASE;TELE MONITORING IN PLACE;PT DENIES ANY ADDITIONAL NEEDS AT THIS TIME;CALL LIGHT IN REACH;WILL CONTINUE TO MONITOR
--- NOTE | 2018-09-14 14:00 | NUR ---
PT TRANSFERRED TO [facility] VIA WHEELCHAIR IN STABLE CONDITION.
--- NOTE | 2018-09-14 14:29 | NUR ---
PT TRANSFERRED BACK TO FLOOR IN STABLE CONDITION.
--- NOTE | 2018-09-14 15:40 | NUR ---
PT RESTING IN SEMI FOWLERS POSITION;RESPIRATIONS EVEN AND UNLABORED ON O2 @ 2L VIA NC;PT REPORTS GENERALIZED PAIN RATING 10/10 ON THE PAIN SCALE AND REQUEST XANAX AND PRN TYLENOL WHICH ARE TO BE ADMINISTERED AT THIS TIME;IV FLUIDS CONTINUE TO INFUSE TO LEFT FOREARM WITH EASE;PT DENIES ANY ADDITIONAL NEEDS AT THIS TIME;ENCOURAGED TO CALL FOR ASSISTANCE IF NEEDED;CALL LIGHT IN REACH;WILL CONTINUE TO MONITOR
--- NOTE | 2018-09-14 21:38 | NUR ---
PT MEDICATED ORDERS PROVIDE AND W/TYLENOL FOR PAIN. PT ASSISTED IN POSITIONING W/PILLOWS AND WARM PACKS FOR COMFORT. LIGHTS ARE OUT, TV ON. WILL PT DENIES ANY OTHER NEEDS AND REPORTS WANTING TO GET SOME SLEEP. CALL LIGHT IN HAND.
--- NOTE | 2018-09-14 23:32 | NUR ---
PT MEDICATED FOR ANXIETY, SHE STATES THAT SHE HAS "JUMPY LEGS." LIGHTS ARE OUT, TV ON. PT DENIES ANY OTHER NEEDS. CALL LIGHT AT BEDSIDE.
[2018-09-15 03:45] VITALS: BP 118/70
--- NOTE | 2018-09-15 04:25 | NUR ---
PT BP 128/70. PT MEDICATED FOR PAIN. NO S/O DISTRESS NOTED. CALL LIGHT AT BEDSIDE.
[2018-09-15 08:27] VITALS: BP 95/59
[2018-09-15 09:16] LABS: HEMATOCRIT 36.4 % (37.0-47.0); HEMOGLOBIN 11.7 g/dl (12.0-16.0); IMMATURE GRANULOCYTES 0.5 % (0.0-5.0); MEAN CELL VOLUME 88.8 fL CALC (80.0-100.0); MEAN CORPUSCULAR HGB 28.5 pG CALC (26.0-32.0); MEAN CORPUSCULAR HGB CONC 32.1 g/L CALC (32.0-36.0); NEUT# 2.94 thou/uL (2.00-7.15); RED BLOOD COUNT 4.1 mill/uL (4.20-5.60); RED CELL DISTRI WIDTH 14.2 % (11.5-15.5)
[2018-09-15 09:24] LABS: ALBUMIN 3.2 g/dL (3.2-5.0); ALKALINE PHOSPHATASE 74 u/l (38-126); ANION GAP 10 (6-22 (CALC)); BILIRUBIN, TOTAL 0.2 mg/dL (0.0-1.4); BUN 11 mg/dL (8-23); BUN/CREATININE RATIO 20 (12-20 (CALC)); CARBON DIOXIDE 30 mmol/l (22-30); CHLORIDE 106 mmol/l (95-108); CREATININE 0.6 mg/dL (0.5-1.0); GFR > 60 ML/MIN (>=60 (CALC)); GFR FOR AFR.AMER. > 60 ML/MIN (>=60 (CALC)); MAGNESIUM 1.9 mg/dL (1.6-2.3); POTASSIUM 3.2 mmol/l (3.5-5.1); SGOT/AST 18 u/l (9-36); SODIUM 143 mmol/l (137-146); TOTAL PROTEIN 5.3 g/dL (6.3-8.2)
--- NOTE | 2018-09-15 09:37 | NUR ---
PT LAYING IN BED AWAKE, ALERT; RESP EVEN AND UNLABORED 02@2L; PULSES STRONG; ABD SOFT, NON TENDER, ACTIVE BS; BRUSING NOTED ON RU SHOULDER; TOP OF NOSE AND UPPER LIP; IVF NS @100CC/HR; SITE APPEARS HEALTHY; TELE IN PLACE; MEDICATED WITH TYLENOL, XANAX; CALL KWAN IN REACH; WILL CONTINUE TO MONITOR.
--- NOTE | 2018-09-15 11:38 | NUR ---
STATED PAIN EASE A BIT /10; HEAT PACK GIVEN AND REPOSITION; VOICE NO OTHER CONCERNS
[2018-09-15 12:04] VITALS: BP 114/63
[2018-09-15 15:17] VITALS: BP 109/68
--- NOTE | 2018-09-15 16:42 | NUR ---
LAYING ON R SIDE IN BED; EASILY AWAKEN; ROCEPHIN INFUSING WITHOUT DIFFICULTY; SITE APPEARS HEALTHY; CALL KWAN IN REACH.
[2018-09-15 19:00] VITALS: BP 103/63
--- NOTE | 2018-09-15 20:10 | NUR ---
REPORT RECIVED FROM MINDY. PT RESTING IN BED, ALERT AND OREINTED. PT REPORT PAIN OF AM 8 OUT OUT OF 10, PT MEDICATED WITH PERCOCET 10/325 PO PER EMAR, AND GIVEN A WARM PACK. IV #22 LFA, INFUSING NS @ 100 ML/HR. RESPIRATIONS EVEN AND UNLABORED ON O2 VIA NC @ 3L. AIR AJUSTED PER PT REQUEST PT DENIES FURTHER NEEDS AT THIS TIME. CALL LIGHT WITHIN REACH. WILL CONTINUE TO MONITOR.
[2018-09-15 23:59] VITALS: BP 125/77
--- NOTE | 2018-09-16 00:08 | NUR ---
PT RETURNING TO BED FROM BATHROOM, GATE STEADY. PT REPORTS PAIN OF 8 OUT OF TEN WARM PACK OFFERED. SAFETY PRECAUTIONS IN PLACE. WILL CONTINUE TO MONITOR.
[2018-09-16 04:38] VITALS: BP 110/61
--- NOTE | 2018-09-16 04:38 | NUR ---
PROVIDED PT WITH A WARMING PACK TO HELP WITH BACK PAIN. PT DENIES FURTHER NEEDS AT THIS TIME. SAFETY PRECAUTIONS IN PLACE. WILL CONTINUE TO MONITOR.
--- NOTE | 2018-09-16 09:00 | NUR ---
PT RESTING IN BED, NO SIGNS OF DISTRESS NOTED, PT REQUESTING XANAX, SHE IS CONCERNED OF HER OLDER BROTHER THAT SHE RESIDES WITH WHO HAS DEMENTIA AND SHE IS HIS CAREGIVER. PT MEDICATED PER DONTE, VSS. DISCUSSED WITH PT POC, VERBALIZED UNDERSTANDING. PT STATES SHE HOPES TO GO HOME TODAY. ASSESSMENT COMPLETED. CALL LIGHT IN REACH,CONTINUE TO MONITOR.
[2018-09-16 09:02] VITALS: BP 113/61
[2018-09-16 11:11] VITALS: BP 121/74
[2018-09-16] MEDS ORDERED: MIDODRINE HCL5 MG PO (14:30)
[2018-09-16] MEDS ORDERED: DOXYCYCL HYC100 MG PO (14:31)
--- NOTE | 2018-09-16 15:16 | NUR ---
Discharge instructions given. Patient verbalizes understanding of same. Discharged in stable condition via Wheelchair to Home with family. All belongings sent with pt.
== END 2018-09-16 15:16 | disposition home or self-care (01) | DRG 57 ==
LOC: ED 18:53 → ED-I 20:29 → ED 20:45 → MS2 20:46
PROVIDERS: Emergency Medicine; ADMIT Internal Medicine; ATTEND Internal Medicine Nephrology
DX: G90.3 Multi-system degeneration of the autonomic nervous system (principal); J44.1 Chronic obstructive pulmonary disease with (acute) exacerbation; E27.3 Drug-induced adrenocortical insufficiency; J44.0 Chronic obstructive pulmonary disease with (acute) lower respiratory infection; J20.9 Acute bronchitis, unspecified; F17.200 Nicotine dependence, unspecified, uncomplicated; F41.1 Generalized anxiety disorder; E03.9 Hypothyroidism, unspecified; G89.4 Chronic pain syndrome; K21.9 Gastro-esophageal reflux disease without esophagitis; T40.2X5A Adverse effect of other opioids, initial encounter; Z79.891 Long term (current) use of opiate analgesic; Z86.73 Personal history of transient ischemic attack (TIA), and cerebral infarction without residual deficits
CPT/HCPCS: G0378

== ENCOUNTER 2019-09-29 | Emergency (ER) | payer MEDICARE, MEDICAID ==
[~2019-09-29] MED LIST changes: +DOXYCYCL HYC100 MG PO; +MIDODRINE HCL5 MG PO
[2019-09-29 13:33] LABS: IMMATURE GRANULOCYTES 0.2 % (0.0-5.0); MEAN CELL VOLUME 89.6 fL CALC (80.0-100.0); MEAN CORPUSCULAR HGB 28.2 pG CALC (26.0-32.0); MEAN CORPUSCULAR HGB CONC 31.5 g/L CALC (32.0-36.0); NEUT# 2.46 thou/uL (2.00-7.15); RED BLOOD COUNT 4.89 mill/uL (4.20-5.60); RED CELL DISTRI WIDTH 13.6 % (11.5-15.5)
[2019-09-29 13:34] LABS: HEMATOCRIT 43.8 % (37.0-47.0); HEMOGLOBIN 13.8 g/dl (12.0-16.0)
[2019-09-29 13:49] LABS: ALKALINE PHOSPHATASE 78 u/l (38-126); BUN 14 mg/dL (8-23); BUN/CREATININE RATIO 22 (12-20 (CALC)); CARBON DIOXIDE 33 mmol/l (22-30); CHLORIDE 99 mmol/l (95-108); CREATININE 0.7 mg/dL (0.5-1.0); GFR > 60 ML/MIN (>=60 (CALC)); GFR FOR AFR.AMER. > 60 ML/MIN (>=60 (CALC)); SGOT/AST 26 u/l (9-36); SODIUM 139 mmol/l (137-146)
[2019-09-29 13:56] LABS: MAGNESIUM 2.2 mg/dL (1.6-2.3)
[2019-09-29 13:58] LABS: ALBUMIN 4.5 g/dL (3.2-5.0); ANION GAP 11 (6-22 (CALC)); BILIRUBIN, TOTAL 0.5 mg/dL (0.0-1.4); POTASSIUM 3.9 mmol/l (3.5-5.1)
[2019-09-29 14:35] LABS: URINE BILIRUBIN - DIPSTICK NEGATIVE (NEGATIVE); URINE BLOOD DIPSTICK NEGATIVE (NEGATIVE); URINE COLOR YELLOW; URINE GLUCOSE - DIPSTICK NEGATIVE (NEGATIVE); URINE KETONE NEGATIVE (NEGATIVE); URINE LEUK ESTERASE TRACE (NEGATIVE); URINE NITRITE - DIPSTICK NEGATIVE (Negative); URINE PH 6.5 (4.5-8.0); URINE PROTEIN - DIPSTICK NEGATIVE (NEG-TRACE); URINE SPECIFIC GRAVITY 1.015; URINE UROBILINOGEN - DIPSTICK 0.2 E.U./dL (0.2)
[2019-09-29 14:39] LABS: BARBITURATES NEGATIVE (NEGATIVE); COCAINE NEGATIVE (NEGATIVE); METHADONE NEGATIVE (NEGATIVE); TETRAHYDROCANNABIONOL NEGATIVE (NEGATIVE); TRICYLIC ANTIDEPRESSANTS NEGATIVE (NEGATIVE)
[2019-09-29 14:40] LABS: OXCYCODONE POSITIVE (NEGATIVE)
[2019-09-29] MEDS ORDERED: SONATA10 MG PO (15:26)
[2019-09-29] MEDS ORDERED: GABAPENTIN600 MG PO (15:27)
[2019-09-29] MEDS ORDERED: ESOMEPRAZOLE MA40 MG PO (15:28)
[2019-09-29] MEDS ORDERED: ENDOCET1 TA3 PO (15:28)
== END 2019-09-29 15:05 | disposition home or self-care (01) ==
PROVIDERS: Family Medicine
DX: R53.1 Weakness (principal); J43.9 Emphysema, unspecified; F17.210 Nicotine dependence, cigarettes, uncomplicated; Z86.73 Personal history of transient ischemic attack (TIA), and cerebral infarction without residual deficits

== ENCOUNTER 2019-10-18 | Emergency (ER) | payer MEDICARE, MEDICAID ==
[~2019-10-18] MED LIST changes: +ENDOCET1 TA3 PO; +ESOMEPRAZOLE MA40 MG PO; +GABAPENTIN600 MG PO; +SONATA10 MG PO
[2019-10-18] MEDS ORDERED: IPRATROPIUM BROMID1 (15:43)
[2019-10-18] MEDS ORDERED: ALBUTEROL SUL0.083 % IN (15:43)
[2019-10-18] MEDS ORDERED: COMBIVENT RESPIMAT IN (15:44)
[2019-10-18 15:46] LABS: HEMATOCRIT 44.7 % (37.0-47.0); HEMOGLOBIN 14.4 g/dl (12.0-16.0); IMMATURE GRANULOCYTES 0.7 % (0.0-5.0); MEAN CELL VOLUME 88.3 fL CALC (80.0-100.0); MEAN CORPUSCULAR HGB 28.5 pG CALC (26.0-32.0); MEAN CORPUSCULAR HGB CONC 32.2 g/dL CAL (32.0-36.0); NEUT# 4.64 thou/uL (2.00-7.15); RED BLOOD COUNT 5.06 mill/uL (4.20-5.60)
[2019-10-18 16:21] LABS: ALBUMIN 4.3 g/dL (3.2-5.0); ALKALINE PHOSPHATASE 59 u/l (38-126); AMYLASE 52 u/l (30-110); BUN 23 mg/dL (8-23); BUN/CREATININE RATIO 38 (12-20 (CALC)); CARBON DIOXIDE 30 mmol/l (22-30); CHLORIDE 99 mmol/l (95-108); CPK 31 u/l (30-165); CREATININE 0.6 mg/dL (0.5-1.0); GFR > 60 ML/MIN (>=60 (CALC)); GFR FOR AFR.AMER. > 60 ML/MIN (>=60 (CALC)); LIPASE 38 u/l (23-300); MAGNESIUM 2.4 mg/dL (1.6-2.3); SGOT/AST 26 u/l (9-36); SODIUM 137 mmol/l (137-146); TOTAL PROTEIN 6.9 g/dL (6.3-8.2)
[2019-10-18 16:22] LABS: URINE BILIRUBIN - DIPSTICK NEGATIVE (NEGATIVE); URINE BLOOD DIPSTICK NEGATIVE (NEGATIVE); URINE COLOR YELLOW; URINE GLUCOSE - DIPSTICK NEGATIVE (NEGATIVE); URINE KETONE NEGATIVE (NEGATIVE); URINE LEUK ESTERASE NEGATIVE (NEGATIVE); URINE NITRITE - DIPSTICK NEGATIVE (Negative); URINE PROTEIN - DIPSTICK NEGATIVE (NEG-TRACE); URINE UROBILINOGEN - DIPSTICK 0.2 E.U./dL (0.2)
[2019-10-18 16:24] LABS: ACT PARTIAL THROMBO TIME 21.7 SECONDS (20.0-32.5); D-DIMER 0.41 mg/L (0.19-0.60); INTERNATIONAL NORMALIZED RATIO 0.9 RATIO (0.7-1.3); PROTHROMBIN TIME 9.4 SECONDS (9.0-12.5)
[2019-10-18 16:25] LABS: BARBITURATES NEGATIVE (NEGATIVE); COCAINE NEGATIVE (NEGATIVE); METHADONE NEGATIVE (NEGATIVE); OXCYCODONE POSITIVE (NEGATIVE); TETRAHYDROCANNABIONOL NEGATIVE (NEGATIVE); TRICYLIC ANTIDEPRESSANTS NEGATIVE (NEGATIVE)
[2019-10-18 16:28] LABS: ANION GAP 13 (6-22 (CALC)); BILIRUBIN, TOTAL 0.8 mg/dL (0.0-1.4); POTASSIUM 5.1 mmol/l (3.5-5.1)
[2019-10-18 16:29] LABS: MYOGLOBIN 21 ng/mL (0 - 62)
[2019-10-18 16:53] LABS: TSH, 3RD GENERATION 0.35 uIU/mL (0.47 - 4.68)
[2019-10-18] MEDS ORDERED: SYNTHROID50 MCG PO (18:08)
== END 2019-10-18 18:05 | disposition home or self-care (01) ==
PROVIDERS: Family Medicine
DX: J43.9 Emphysema, unspecified (principal); G90.3 Multi-system degeneration of the autonomic nervous system; E03.9 Hypothyroidism, unspecified; F17.210 Nicotine dependence, cigarettes, uncomplicated; Z86.73 Personal history of transient ischemic attack (TIA), and cerebral infarction without residual deficits; R53.1 Weakness

== ENCOUNTER 2020-10-17 13:12 | Observation (INO) | payer MEDICARE, MEDICAID ==
[~2020-10-17] VITALS: Ht 170.2 cm; Wt 63.0 kg
[~2020-10-17 13:12] MED LIST changes: +ALBUTEROL SUL0.083 % IN; +COMBIVENT RESPIMAT IN; +IPRATROPIUM BROMID1; +SYNTHROID50 MCG PO
--- NOTE | 2020-10-17 13:35 | NUR ---
PT TO ROOM VIA W/C AOX4 AND IN NO DISTRESS
--- NOTE | 2020-10-17 14:00 | NUR ---
RT CURRENTLY BEDISDE FOR ABG
[2020-10-17 14:09] LABS: HEMATOCRIT 41.9 % (37.0-47.0); IMMATURE GRANULOCYTES 0.2 % (0.0-5.0); MEAN CELL VOLUME 89.7 fL CALC (80.0-100.0); MEAN CORPUSCULAR HGB 27.8 pG CALC (26.0-32.0); NEUT# 1.91 thou/uL (2.00-7.15); RED BLOOD COUNT 4.67 mill/uL (4.20-5.60); RED CELL DISTRI WIDTH 13.4 % (11.5-15.5)
[2020-10-17 14:28] LABS: ALBUMIN 4.5 g/dL (3.2-5.0); ALKALINE PHOSPHATASE 79 u/l (38-126); BILIRUBIN, TOTAL 0.5 mg/dL (0.0-1.4); BUN 25 mg/dL (8-23); BUN/CREATININE RATIO 33 (12-20 (CALC)); CARBON DIOXIDE 34 mmol/l (22-30); CHLORIDE 98 mmol/l (95-108); CREATININE 0.8 mg/dL (0.5-1.0); GFR > 60 ML/MIN (>=60 (CALC)); GFR FOR AFR.AMER. > 60 ML/MIN (>=60 (CALC)); LIPASE 75 u/l (23-300); SGOT/AST 28 u/l (9-36); SODIUM 137 mmol/l (137-146)
[2020-10-17 14:29] LABS: D-DIMER 0.59 mg/L (0.19-0.60)
[2020-10-17 14:48] LABS: URINE BILIRUBIN - DIPSTICK NEGATIVE (NEGATIVE); URINE BLOOD DIPSTICK TRACE-LYSED (NEGATIVE); URINE COLOR YELLOW; URINE GLUCOSE - DIPSTICK NEGATIVE (NEGATIVE); URINE KETONE NEGATIVE (NEGATIVE); URINE PH 5.5 (4.5-8.0); URINE PROTEIN - DIPSTICK NEGATIVE (NEG-TRACE); URINE SPECIFIC GRAVITY >=1.030; URINE UROBILINOGEN - DIPSTICK 0.2 E.U./dL (0.2)
[2020-10-17 14:49] LABS: ACT PARTIAL THROMBO TIME 23.6 SECONDS (20.0-32.5); PROTHROMBIN TIME 9.7 SECONDS (9.0-12.5)
[2020-10-17 14:50] LABS: ANION GAP 9 (6-22 (CALC)); POTASSIUM 3.6 mmol/l (3.5-5.1)
[2020-10-17 14:59] LABS: URINE BACTERIA FEW hpf; URINE EPITHELIAL CELLS MODERATE EPI/hpf (0-FEW); URINE LEUK ESTERASE SMALL (NEGATIVE); URINE NITRITE - DIPSTICK NEGATIVE (Negative); URINE RBC 0-2 RBC/hpf (0-5)
--- NOTE | 2020-10-17 16:16 | NUR ---
PATIENT RESTING, TALKING ON HER CELL PHONE DENIES ANY NEEDS CURRENTLY.
[2020-10-17] MEDS ORDERED: TRAZODONE50 MG PO (17:08)
--- NOTE | 2020-10-17 17:09 | NUR ---
PATIENT STATES UNDERSTANDING OF OBSERVATION AND AGREES.
--- NOTE | 2020-10-17 17:24 | NUR ---
karissa printed to floo
--- NOTE | 2020-10-17 17:38 | NUR ---
REPORT CALLED TO NURSE FOR [phone]
[2020-10-17 17:55] VITALS: BP 98/63
--- NOTE | 2020-10-17 18:00 | NUR ---
PT ARRIVED TO MED SURG FLOOR ROOM#262 VIA STRETCHER ACCOMPANIED BY NURSE GASTON;PT AMBULATED TO BED WITH A STEADY GAIT;VS AND ASSESSMENT WERE COMPLETED;ALLERGY BAND WAS APPLIED TO PT;PT REPORTS PAIN IN HER BACK/SPINE OF 10/10;PT MEDICATED WITH PERCOCET 10MG PO;HEART SOUNDS ARE REGULAR IN RATE AND RHYTHM;LUNG SOUNDS ARE CLEAR AND DIMINSHED IN ALL [place];RESPIRATIONS ARE EVEN AND UNLABORED ON O2 2L VIA NC;TELE IS IN PLACE READING SR;#20G IV IN RAC IS SL, PATENT AND FREE OF COMPLICATIONS;PT ORIENTED TO CALL LIGHT SYSTEM AND ROOM;INVENTORY SHEET COMPLETED;SAFETY PRECAUTIONS IN PLACE;CALL LIGHT WITHIN REACH;BED IN LOWEST POSITION;WILL CONTINUE TO MONITOR.
--- NOTE | 2020-10-17 19:00 | NUR ---
REPORT FROM FELI RAMACHANDRAN. ASSUMED PT CARE.
--- NOTE | 2020-10-17 19:15 | NUR ---
DINNER TRAY PROVIDED AT THIS TIME.
[2020-10-17 19:30] VITALS: BP 88/63
[2020-10-17 21:09] VITALS: BP 80/44
--- NOTE | 2020-10-17 21:09 | NUR ---
NOTIFIED FIELD SERVICE CONSULTANT DRY CHAIN OFFBEARER OF PT LOW BP, ASYMPTOMATIC AT THIS TIME. PT DENIES ANY HISTORY OF LOW BP. MUCOUS MEMBRANES APPEARS DRY AND PT HAS POOR SKIN TURGOR. ORDERS RECEIVED WILL MEDICATE AND CONTINUE TO MONTIOR.
[2020-10-17 22:15] VITALS: BP 94/59
--- NOTE | 2020-10-17 22:21 | NUR ---
ASSISTED PT OOB TO VOID. PT AMBULATED WITH STEADY GAIT. NO APPARENT RESPIRATORY DISTRESS NOTED, PT REMAINS ON 2L/M VIA NC. BACK INTO BED. BP IMPROVING. IVF INFUSING WITHOUT DIFFICULTY. PT DENIES ANY PAIN OR DISCOMFORT. CALL LIGHT WITHIN REACH. WILL CONTINUE TO MONITOR.
[2020-10-17 23:55] VITALS: BP 97/56
--- NOTE | 2020-10-18 00:30 | NUR ---
PT C/O DISCOMFORT AT IV SITE. NO APPARENT REDNESS OR INFILTRATE NOTED. IV FLUSHED EASILY. PT STATES DISCOMFORT DUE TO LOCATION. PT REQUEST NEW IV SITE BE STARTED. NEW IV SITE STARTED X1 ATTEMPT #22 RFA, WITH BRISK BLOOD RETURN. PT TOLERATED WELL. OLD IV SITE REMOVED WITH CATH INTACT. PT DENIES ANY OTHER CURRENT WANTS OR NEEDS. CALL LIGHT WITHIN REACH. WILL CONTINUE TO MONITOR.
[2020-10-18 04:00] VITALS: BP 111/77
--- NOTE | 2020-10-18 04:41 | NUR ---
PT MEDICATED FOR BACK PAIN 03/11. ENCOURAGED REPOSITIONING AND EXTRA PILLOWS PROVIDED UPON REQUEST. NO APPARENT RESPIRATORY DISTRESS NOTED, 02 @ 2L/M. IV SITE APPEARS HEALTHY WITH IVF INFUSING. ER REGISTRAR IN PLACE. PT DENIES ANY OTHER CURRENT WANTS OR NEEDS. CALL LIGHT WITHIN REACH. WILL CONTINUE TO MONITOR.
[2020-10-18 06:33] LABS: BUN 16 mg/dL (8-23); BUN/CREATININE RATIO 28 (12-20 (CALC)); CARBON DIOXIDE 33 mmol/l (22-30); CHLORIDE 103 mmol/l (95-108); CREATININE 0.6 mg/dL (0.5-1.0); GFR > 60 ML/MIN (>=60 (CALC)); GFR FOR AFR.AMER. > 60 ML/MIN (>=60 (CALC)); SODIUM 138 mmol/l (137-146)
[2020-10-18 06:34] LABS: ANION GAP 6 (6-22 (CALC)); POTASSIUM 4.4 mmol/l (3.5-5.1)
[2020-10-18 07:40] VITALS: BP 121/58
--- NOTE | 2020-10-18 08:00 | NUR ---
PT WAS FOUND RESTING IN BED IN SEMI-FOWLERS POSITION;PT IS A&O X3;VS AND ASSESSMENT WERE COMPLETED;PT HAS NO REPORTS OF PAIN AT THIS TIME;HEART SOUNDS ARE REGULAR IN RATE AND RHYTHM;LUNG SOUNDS ARE CLEAR AND DIMINISHED IN ALL [place];NON-PRODUCTIVE DRY COUGH NOTED;RESPIRATIONS ARE EVEN AND UNLABORED ON O2 @2L NC;PT DOES EXPRESS SOME EXERTIONAL SOB;#22G IV IN RFA IS RUNNING NS @75ML/HR;IV SITE IS PATENT AND FREE OF COMPLICATIONS AT THIS TIME;TELE IS IN PLACE RUNNING SR @88BPM;SAFETY PRECAUTIONS IN PLACE;CALL LIGHT WITHIN REACH;BED IN LOWEST POSITION;WILL CONTINUE TO MONITOR.
--- NOTE | 2020-10-18 09:19 | NUR ---
AT BEDSIDE DISCUSSING POC.
--- NOTE | 2020-10-18 09:32 | NUR ---
[employer]ZER LABORATORY TECHNICIAN CALLED FOR PRN BRONCHODILATOR AEROSOL THERAPY. PT DEDRICK WELL. KENIA. MARISELA. RN AWARE. MD NEAR PT ROOM. [employer] LABORATORY TECHNICIAN TO MONITOR.
--- NOTE | 2020-10-18 09:33 | NUR ---
RT AT BEDSIDE ADMINISTERING BREATHING TX.
--- NOTE | 2020-10-18 09:50 | NUR ---
OXYGEN DECREASED TO 1L VIA NC, WILL CONTINUE TO MONITOR FOR TOLERATION.
[2020-10-18 10:25] VITALS: BP 99/54
--- NOTE | 2020-10-18 10:30 | NUR ---
O2 SATS 94% ON 1L VIA NC, PT OXYGEN REMOVED AT THIS TIME.WILL CONTINUE TO MONITOR
--- NOTE | 2020-10-18 11:17 | NUR ---
O2 SATS REMAIN AT 94% ON RA,OXYGEN TO REMAIN AT BEDSIDE PRN;PT DENIES ANY ADDITIONAL NEEDS;WILL CONTINUE TO MONITOR
--- NOTE | 2020-10-18 12:00 | NUR ---
PT WAS FOUND RESTING IN BED;PT IS A&O X3;PT IS REPORTING PAIN 10/10 IN HER BACK AND SPINE;PT WAS MEDICATED WITH PERCOCET 10MG;TELE IN PLACE;#22G IV IN RFA IS RUNNING NS@10 ML/HR;IV SITE IS PATENT AND FREE OF COMPLICATIONS;SAFETY PRECAUTIONS IN PLACE;CALL LIGHT WITHIN REACH;BED IN LOWEST POSITION;WILL CONTINUE TO MONITOR.
[2020-10-18 15:00] VITALS: BP 91/49
--- NOTE | 2020-10-18 15:52 | NUR ---
PT WAS FOUND RESTING IN BED;PT HAS NO COMPLAINTS OF PAIN AT THIS TIME;TELE IS IN PLACE;#22G IV IN RFA IS SL, PATENT AND FREE OF COMPLICATIONS;SAFETY PRECAUTIONS IN PLACE;CALL LIGHT WITHIN REACH;BED IN LOWEST POSITION;WILL CONTINUE TO MONITOR.
[2020-10-18 20:00] VITALS: BP 91/50; BP 99/47
--- NOTE | 2020-10-18 20:02 | NUR ---
PHYSICAL ASSESMENT COMPLETE. PT CURRENTLY DENIES PAIN OR DISCOMFORT. SCHEDULED MEDICATIONS AND PRN MEDICATION ADMINISTERED, SEE E-MAR. PT DENIES ANY NEEDS AT THIS TIME. PLAN OF CARE REVIEWED, PT DENIES QUESTIONS, VERBALIZES UNDERSTANDING. ITEMS WITHIN REACH, BED LOCKED IN LOW POSITION W/ BEDRAILS UP X2. CALL KWAN WITHIN REACH, AGREES TO CALL PRN.
[2020-10-19] VITALS: BP 100/54
--- NOTE | 2020-10-19 00:02 | NUR ---
PT LAYING IN BED WITH EYES CLOSED, APPEARS TO BE SLEEPING, APPEARS COMFORTABLE AND IN NO DISTRESS. RESPIRATIONS REGULAR AND UNLABORED. ITEMS REMAIN WITHIN REACH, CALL KWAN REMAINS WITHIN REACH. BED REMAINS LOCKED AND IN LOW POSITION WITH BEDRAILS UP X2. WILL CONTINUE TO MONITOR.
--- NOTE | 2020-10-19 04:00 | NUR ---
PT RESTING IN BED, NO SIGNS OF DISTRESS NOTED, RESP EVEN AND UNLABORED. PT VOICES NO NEEDS OR COMPLAINTS AT THIS TIME. CALL LIGHT IN REACH, CONTINUE TO MONITOR.
[2020-10-19 04:13] VITALS: BP 119/60
--- NOTE | 2020-10-19 06:00 | NUR ---
PT C/O OF SOB. PT OBSERVED SHALLOW BREATHING.O2 STAT AT 89%. PLACE PT ON 2 LITERS OF 02 AND RECHECKED STAT. PT AT 94 % AND FEELING MUCH BETTER.
--- NOTE | 2020-10-19 07:00 | NUR ---
PT REPORT RECEIVED FROM NIGHT NURSEMAIKEL.
[2020-10-19 07:38] VITALS: BP 113/61
--- NOTE | 2020-10-19 08:00 | NUR ---
PT WAS FOUND RESTING IN BED;PT IS A&O X3;VS AND ASSESSMENT WERE COMPLETED;PT HAS NO COMPLAINTS OR REPORTS OF PAIN AT THIS TIME;HEART SOUNDS ARE REGULAR IN RATE AND RHYTHM;LUNG SOUNDS ARE CLEAR AND DIMINISHED IN ALL [place];RESPIRATIONS ARE EVEN AND UNLABORED; PT IS SLIGHTLY ANXIOUS AND HAS COMPLAINTS OF SOME SOB;PLACED 2L O2 VIA NC BACK ON PT FOR COMFORT;WILL RECHECK O2 LEVELS SHORTLY;TELE IS IN PLACE; #22G IV IN RFA IS SL, PATENT AND FREE OF COMPLICATIONS;SAFETY PRECAUTIONS IN PLACE;CALL LIGHT WITHIN REACH;BED IN LOWEST POSITION;WILL CONTINUE TO MONITOR.
--- NOTE | 2020-10-19 08:15 | NUR ---
ER KARDEX CLERK KYLE REPORTED RHYTHM CHANGE ON PT. PT DENIES ANY CURRENT PAIN OR DISCOMFORTS AT THIS TIME, VS WITHIN NORMAL LIMITS;STAT EKG OBTAINED BY RT JAYDA AND RESULTS IN NSR.SCOTTIE REDD NOTIFIED AND NO NEW ORDERS RECEIVED AT THIS TIME;WILL CONTINUE TO MONITOR
--- NOTE | 2020-10-19 10:05 | NUR ---
IS AT BEDSIDE WITH MAYRA GIBBONS, DISCUSSING POC WITH PT
[2020-10-19 11:12] VITALS: BP 118/60
[2020-10-19] MEDS ORDERED: MEDDOSEPAK PO (11:35)
[2020-10-19] MEDS ORDERED: ZPAK PO (11:35)
--- NOTE | 2020-10-19 12:00 | NUR ---
PT WAS FOUND RESTING IN BED;TELE IS IN PLACE;#22G IN RFA IS SL, PATENT AND FREE OF COMPLICATIONS;SAFETY PRECAUTIONS IN PLACE;CALL LIGHT WITHIN REACH;BED IN LOWEST POSITION;WILL CONTINUE TO MONITOR.
--- NOTE | 2020-10-19 14:32 | NUR ---
PT WAS GIVEN DISCHARGE PACKET AND NEW PRESCRIPTIONS;DISCHARGE INSTRUCTIONS AND PRESCRIPTIONS WERE EXPLAINED;PT EXPRESSED UNDERSTANDING AND HAD NO FURTHER QUESTIONS;SIGNATURE OBTAINED;IV REMOVED;CATHETER INTACT WITH NO COMPLICATIONS OR ISSUES;TELE WAS REMOVED;PT WILL BE TRANSPORTED TO HOME WITH FAMILY.
[2020-10-19 15:08] VITALS: BP 123/56
--- NOTE | 2020-10-19 15:20 | NUR ---
Discharge instructions given. Patient verbalizes understanding of same. Discharged in stable condition via Wheelchair to Home with family. All belongings sent with pt. PT WAS [facility] TO [facility] IN ST[facility] CONDITION VIA WHEELCHAIR ACCOMPANINED BY CHANGE HOUSE ATTENDANT;ALL PT BELONGINGS WERE SENT WITH PT;PT WAS SENT HOME WITH OXYGEN WELL;PT WILL BE TRANSPORTED HOME WITH FAMILY.
--- NOTE | 2020-10-21 13:25 | NUR ---
Pneumonia post discharge follow up call completed today. Pt. states she is doing reasonably well. Home oxygen was delivered and pt is using it most of the time. No fever or chills since discharge. Pt has called to schedule follow up appt and awaiting return call with appt time. Discharge medication was obtained and is being taken without issue. No questions or concerns expressed by patient. Asked that her extreme gratitude be shared with staff. Very complimentary of care she received.
== END 2020-10-19 15:21 | disposition home or self-care (01) ==
LOC: ED 13:12 → ED-I 16:30 → ED 16:57 → MS2 16:58
PROVIDERS: ADMIT Internal Medicine; ATTEND Internal Medicine
DX: J43.9 Emphysema, unspecified (principal); J96.01 Acute respiratory failure with hypoxia; G89.4 Chronic pain syndrome; F41.9 Anxiety disorder, unspecified; E03.9 Hypothyroidism, unspecified; K21.9 Gastro-esophageal reflux disease without esophagitis; F17.200 Nicotine dependence, unspecified, uncomplicated; Z86.73 Personal history of transient ischemic attack (TIA), and cerebral infarction without residual deficits; Z20.822 Contact with and (suspected) exposure to COVID-19
CPT/HCPCS: J1650; Q9967

== ENCOUNTER 2020-10-28 14:47 | Observation (INO) | payer MEDICARE, MEDICAID ==
[~2020-10-28] VITALS: Ht 170.2 cm; Wt 65.0 kg
[~2020-10-28 14:47] MED LIST changes: -ENDOCET1 TA3 PO; +MEDDOSEPAK PO; +ZPAK PO
[2020-10-28 15:42] LABS: HEMATOCRIT 38.2 % (37.0-47.0); HEMOGLOBIN 11.7 g/dl (12.0-16.0); IMMATURE GRANULOCYTES 0.6 % (0.0-5.0); MEAN CELL VOLUME 90.5 fL CALC (80.0-100.0); MEAN CORPUSCULAR HGB 27.7 pG CALC (26.0-32.0); MEAN CORPUSCULAR HGB CONC 30.6 g/dL CAL (32.0-36.0); NEUT# 3.43 thou/uL (2.00-7.15); RED BLOOD COUNT 4.22 mill/uL (4.20-5.60); RED CELL DISTRI WIDTH 13.8 % (11.5-15.5)
[2020-10-28 15:57] LABS: ALBUMIN 3.8 g/dL (3.2-5.0); ALKALINE PHOSPHATASE 77 u/l (38-126); ANION GAP 7 (6-22 (CALC)); BILIRUBIN, TOTAL 0.5 mg/dL (0.0-1.4); BUN 21 mg/dL (8-23); BUN/CREATININE RATIO 36 (12-20 (CALC)); CARBON DIOXIDE 35 mmol/l (22-30); CHLORIDE 98 mmol/l (95-108); CREATININE 0.6 mg/dL (0.5-1.0); ETHYL ALCOHOL 0 mg/dl (0-30); GFR > 60 ML/MIN (>=60 (CALC)); GFR FOR AFR.AMER. > 60 ML/MIN (>=60 (CALC)); LIPASE 64 u/l (23-300); MAGNESIUM 2.3 mg/dL (1.6-2.3); POTASSIUM 4.3 mmol/l (3.5-5.1); SGOT/AST 23 u/l (9-36); SODIUM 135 mmol/l (137-146); TOTAL PROTEIN 5.9 g/dL (6.3-8.2)
[2020-10-28 16:00] LABS: ACT PARTIAL THROMBO TIME 21.9 SECONDS (20.0-32.5); INTERNATIONAL NORMALIZED RATIO 0.9 RATIO (0.7-1.3); PROTHROMBIN TIME 9.6 SECONDS (9.0-12.5)
[2020-10-28 16:22] LABS: D-DIMER 0.39 mg/L (0.19-0.60)
[2020-10-28 16:43] LABS: URINE BILIRUBIN - DIPSTICK NEGATIVE (NEGATIVE); URINE BLOOD DIPSTICK NEGATIVE (NEGATIVE); URINE COLOR YELLOW; URINE GLUCOSE - DIPSTICK NEGATIVE (NEGATIVE); URINE KETONE NEGATIVE (NEGATIVE); URINE LEUK ESTERASE NEGATIVE (NEGATIVE); URINE PH 7.5 (4.5-8.0); URINE PROTEIN - DIPSTICK NEGATIVE (NEG-TRACE); URINE SPECIFIC GRAVITY 1.015; URINE UROBILINOGEN - DIPSTICK 0.2 E.U./dL (0.2)
[2020-10-28 16:47] LABS: URINE NITRITE - DIPSTICK NEGATIVE (Negative)
[2020-10-28] MEDS ORDERED: IS-ZC 50 50 MG1 TAB PO (18:31)
[2020-10-28] MEDS ORDERED: VITAMIN D31000 UNI1 PO (18:31)
[2020-10-28] MEDS ORDERED: LIPITOR10 M1 PO (18:32)
[2020-10-28 18:46] VITALS: BP 127/62
[2020-10-29] VITALS: BP 118/56
[2020-10-29 04:00] VITALS: BP 118/64
[2020-10-29 05:42] LABS: HEMATOCRIT 40.6 % (37.0-47.0); HEMOGLOBIN 12.5 g/dl (12.0-16.0); IMMATURE GRANULOCYTES 0.7 % (0.0-5.0); MEAN CELL VOLUME 89.4 fL CALC (80.0-100.0); MEAN CORPUSCULAR HGB 27.5 pG CALC (26.0-32.0); MEAN CORPUSCULAR HGB CONC 30.8 g/dL CAL (32.0-36.0); NEUT# 3.63 thou/uL (2.00-7.15); RED BLOOD COUNT 4.54 mill/uL (4.20-5.60); RED CELL DISTRI WIDTH 13.3 % (11.5-15.5)
[2020-10-29 05:57] LABS: ALBUMIN 3.8 g/dL (3.2-5.0); ALKALINE PHOSPHATASE 70 u/l (38-126); ANION GAP 7 (6-22 (CALC)); BILIRUBIN, TOTAL 0.6 mg/dL (0.0-1.4); BUN 20 mg/dL (8-23); BUN/CREATININE RATIO 41 (12-20 (CALC)); CARBON DIOXIDE 31 mmol/l (22-30); CHLORIDE 101 mmol/l (95-108); CREATININE 0.5 mg/dL (0.5-1.0); GFR > 60 ML/MIN (>=60 (CALC)); GFR FOR AFR.AMER. > 60 ML/MIN (>=60 (CALC)); POTASSIUM 3.8 mmol/l (3.5-5.1); SGOT/AST 26 u/l (9-36); SODIUM 136 mmol/l (137-146)
[2020-10-29 07:54] VITALS: BP 123/63
[2020-10-29 08:17] LABS: CHOLESTEROL HDL RATIO 2.7 (<4.4 (CALC))
[2020-10-29 10:21] VITALS: BP 103/56
[2020-10-29 14:44] VITALS: BP 111/55
[2020-10-29 18:40] VITALS: BP 116/65
[2020-10-30 00:02] VITALS: BP 105/62
[2020-10-30 04:11] VITALS: BP 100/51
[2020-10-30 06:21] LABS: HEMATOCRIT 39.4 % (37.0-47.0); HEMOGLOBIN 12.5 g/dl (12.0-16.0); MEAN CELL VOLUME 88.3 fL CALC (80.0-100.0); MEAN CORPUSCULAR HGB CONC 31.7 g/dL CAL (32.0-36.0); RED BLOOD COUNT 4.46 mill/uL (4.20-5.60); RED CELL DISTRI WIDTH 13.6 % (11.5-15.5)
[2020-10-30 06:50] LABS: ANION GAP 7 (6-22 (CALC)); BUN 22 mg/dL (8-23); BUN/CREATININE RATIO 41 (12-20 (CALC)); CARBON DIOXIDE 33 mmol/l (22-30); CHLORIDE 103 mmol/l (95-108); CREATININE 0.5 mg/dL (0.5-1.0); GFR > 60 ML/MIN (>=60 (CALC)); GFR FOR AFR.AMER. > 60 ML/MIN (>=60 (CALC)); MAGNESIUM 2.4 mg/dL (1.6-2.3); SODIUM 139 mmol/l (137-146)
[2020-10-30 07:25] VITALS: BP 110/63
[2020-10-30 10:54] VITALS: BP 98/50
[2020-10-30 14:52] VITALS: BP 104/50
[2020-10-30 19:17] VITALS: BP 107/65
[2020-10-31 00:04] VITALS: BP 114/62
[2020-10-31 04:00] VITALS: BP 133/62
[2020-10-31 05:19] VITALS: BP 107/65
[2020-10-31 06:09] LABS: HEMATOCRIT 41.6 % (37.0-47.0); HEMOGLOBIN 12.8 g/dl (12.0-16.0); MEAN CELL VOLUME 88.5 fL CALC (80.0-100.0); MEAN CORPUSCULAR HGB 27.2 pG CALC (26.0-32.0); MEAN CORPUSCULAR HGB CONC 30.8 g/dL CAL (32.0-36.0); RED BLOOD COUNT 4.7 mill/uL (4.20-5.60); RED CELL DISTRI WIDTH 13.8 % (11.5-15.5)
[2020-10-31 06:39] LABS: ANION GAP 10 (6-22 (CALC)); BUN 25 mg/dL (8-23); BUN/CREATININE RATIO 49 (12-20 (CALC)); CARBON DIOXIDE 29 mmol/l (22-30); CHLORIDE 103 mmol/l (95-108); CREATININE 0.5 mg/dL (0.5-1.0); GFR > 60 ML/MIN (>=60 (CALC)); GFR FOR AFR.AMER. > 60 ML/MIN (>=60 (CALC)); POTASSIUM 4.6 mmol/l (3.5-5.1); SODIUM 137 mmol/l (137-146)
[2020-10-31 07:00] VITALS: BP 113/66
[2020-10-31] MEDS ORDERED: MEDDOSEPAK PO (09:05)
== END 2020-10-31 11:00 | disposition home health service (06) ==
LOC: ED 14:47 → ED-I 17:15 → ED 17:30 → MS2 17:31
PROVIDERS: Nurse Practitioner; Nurse Practitioner Family; ADMIT Internal Medicine; ATTEND Internal Medicine
DX: J43.9 Emphysema, unspecified (principal); J96.92 Respiratory failure, unspecified with hypercapnia; J96.91 Respiratory failure, unspecified with hypoxia; R07.1 Chest pain on breathing; F41.9 Anxiety disorder, unspecified; R53.1 Weakness; K21.9 Gastro-esophageal reflux disease without esophagitis; E78.5 Hyperlipidemia, unspecified; G89.4 Chronic pain syndrome; F17.200 Nicotine dependence, unspecified, uncomplicated; Z86.73 Personal history of transient ischemic attack (TIA), and cerebral infarction without residual deficits; Z99.81 Dependence on supplemental oxygen; Z20.822 Contact with and (suspected) exposure to COVID-19
CPT/HCPCS: G0378; J1650